=== PATIENT | male | born 1945 | race Caucasian/White ===

== ENCOUNTER → 2019-02-26 | Outpatient (CLI) | payer MEDICARE ==
--- NOTE | 2019-02-26 15:18 | PCVCIMAG ---
EXAM: BILATERAL LOWER EXTREMITY ARTERIAL DUPLEX INDICATION: Peripheral Arterial Disease. Leg pain. FINDINGS: Right Leg: Common femoral and profunda femoral arteries are patent. Increased systolic velocity mid [place] superficial femoral artery of 564 cm/s consistent with 95% stenosis. The popliteal artery is patent. Occlusion mid posterior tibial artery. The anterior tibial and peroneal arteries are patent. Left Leg: Common femoral profunda femoral arteries are patent. Increased systolic velocity [place] distal superficial femoral artery with 467 cm/s consistent with 90% stenosis. Popliteal artery is patent. Mid/distal posterior tibial artery is occluded. The anterior tibial and peroneal arteries are patent. IMPRESSION: 95% stenosis mid [place] right superficial femoral artery. 90% stenosis distal [place] left superficial femoral artery. LOC:[id number]
== END | disposition home or self-care (01) ==
LOC: PCVCIMAG 11:24
PROVIDERS: ATTEND Nuclear Medicine Nuclear Cardiology
DX: I70.203 Unspecified atherosclerosis of native arteries of extremities, bilateral legs (principal)
CPT/HCPCS: 93925

== ENCOUNTER → 2019-03-02 | Outpatient (CLI) | payer MEDICARE | END | disposition home or self-care (01) | LOC: PCVCCLINIC 13:34 | PROVIDERS: ATTEND Nuclear Medicine Nuclear Cardiology | DX: E11.51 Type 2 diabetes mellitus with diabetic peripheral angiopathy without gangrene (principal); I12.9 Hypertensive chronic kidney disease with stage 1 through stage 4 chronic kidney disease, or unspecified chronic kidney disease; E11.22 Type 2 diabetes mellitus with diabetic chronic kidney disease; N18.3 Chronic kidney disease, stage 3 (moderate); Z72.0 Tobacco use | CPT/HCPCS: G0463 ==

== ENCOUNTER → 2019-03-11 | Outpatient (CLI) | payer MEDICARE ==
--- NOTE | 2019-03-11 14:16 | PCVCIMAG ---
EXAM: BILATERAL CAROTID DUPLEX INDICATION: Carotid Occlusive Disease. FINDINGS: Doppler Measurements (centimeters per second): RIGHT: Peak CCA-94, Peak ECA-110, Diastolic ICA-31, Peak ICA-124, ICA/CCA Ratio-1.3. LEFT: Peak CCA-84, Peak ECA-128, Diastolic ICA-29, Peak ICA-117, ICA/CCA Ratio-1.4. RIGHT CAROTID: The carotid bulb has mild plaque. The proximal internal carotid artery shows <40% stenosis. The common carotid artery shows no significant stenosis. The external carotid artery shows no significant stenosis. LEFT CAROTID: The carotid bulb has moderate plaque. The proximal internal carotid artery shows <40% stenosis. The common carotid artery shows no significant stenosis. The external carotid artery shows no significant stenosis. Antegrade flow in both vertebral arteries. IMPRESSION: <40% stenosis of the right internal carotid artery with mild plaque. <40% stenosis of the left internal carotid artery with moderate plaque. LOC:[place] [id number]
== END | disposition home or self-care (01) ==
LOC: PCVCIMAG 13:30
PROVIDERS: ATTEND Nuclear Medicine Nuclear Cardiology
DX: I65.23 Occlusion and stenosis of bilateral carotid arteries (principal)
CPT/HCPCS: 93880

== ENCOUNTER → 2019-03-18 | Outpatient (CLI) | payer MEDICARE | END | disposition home or self-care (01) | LOC: PCVCCLINIC 12:52 | PROVIDERS: ATTEND Internal Medicine Cardiovascular Disease | DX: R93.1 Abnormal findings on diagnostic imaging of heart and coronary circulation (principal); R07.9 Chest pain, unspecified; R06.02 Shortness of breath; E78.5 Hyperlipidemia, unspecified; I10 Essential (primary) hypertension; I73.9 Peripheral vascular disease, unspecified; E11.9 Type 2 diabetes mellitus without complications; F17.210 Nicotine dependence, cigarettes, uncomplicated | CPT/HCPCS: 36415; 80061; 93005; G0463 ==

== ENCOUNTER → 2019-03-23 | Outpatient (CLI) | payer MEDICARE ==
--- NOTE | 2019-03-23 17:54 | PCVCIMAG ---
APPROVED REPORT Study performed: 03/23/2019 15:53:14 Exam: Stress Echocardiogram Indication: CAD , PAD Ht: 5 ft 10 in Medical History Medical History: PAD, Diabetes,TURNER Cardiac Risk Factors: DM, Hyperlipidemia,, Smoking Previous Cardiac Procedures: NONE Pretest Chest Pain Characteristics: No chest pain Exercise History: Sedentary Procedure The patient underwent an Exercise Stress Test using the Gerri Protocol. Blood pressure, heart rate, and EKG were monitored. An Echocardiogram was performed by nuclear test technician in four stages in quad fashion. At peak stress, four selected images were obtained and placed side by side with resting images for comparison. Stress Test Details Stress Test: Exercise stress testing was performed using a Gerri protocol. HR Resting HR: 79 bpmMax Heart Rate (APMHR): 148 bpm Max HR Achieved: 122 bpmTarget HR (85% APMHR): 125 bpm % of APMHR: 82 Recovery HR: 90 bpm HR response to stress: Normal HR response to stress BP Resting BP: 104/60 mmHg Max BP: 158/76 mmHg Recovery BP: 138/62 mmHg BP response to stress: Normal blood pressure response to stress. ECG Resting ECG: Sinus Rhythm Stress ECG: Sinus Rhythm ST Change: Non-ischemic Arrhythmia: Rare PAC,PVC Recovery ECG: Sinus Rhythm Recovery ST Change: Non-ischemic Recovery Arrhythmia: rare PVCs Clinical Reason for Termination: Maximal effort Stress Symptoms: fatigue Exercise duration: 7 min 33 sec Highest Stage Achieved: Stage 3: 3.4 mph at 14% grade. Exercise capacity: 10.1 METs Overall Exercise Capacity for Age: Good Scale: Sedentary Angina Score: None Stress ECG Conclusion The patient exercised according to the GERRI protocol for 7:33 mins; achieving a work level of 10.1 METS. The resting heart rate of 79 bpm poli to a maximum heart rate of 122 bpm. This value represents 82% of the maximal, age-predicted heart rate. The resting blood pressure of 104/60 mmHg, poli to a maximum blood pressure of 158/76mmHg. The exercise test was stopped due to fatigue . Pre-Stress Echo The resting Echocardiogram showed normal left ventricular contractility with an estimated Ejection Fraction of about 55-60%. Normal wall motion in all segments on baseline images. Post-Stress Echo The stress Echocardiogram showed normal left ventricular contractility with an estimated Ejection Fraction of about 65-70%. Normal augmentation of wall motion in all segments on post stress images. Clinical No clinical or ECG evidence for ischemia. Conclusion Clinical Response: Non-ischemic Exercise Capacity: Average Stress ECG Response: Non-ischemic Stress Echo Images: Non-ischemic Normal stress echocardiogram with maximal exercise stress. No clinical, EKG or echocardiographic evidence for ischemia. No echocardiographic evidence for exercise induced ischemia. Borderline moderate aortic stenosis is seen, A trileaflet valve with moderately reduced excursion and mild regurgitation The peak velocity is 2.74 m/sec, peak gradient is 33 mmHg , mean gradient is 19 mmHg. The Aortic valve area is 1.4 cm2 No prior study available for comparison. <Conclusion> Normal stress echocardiogram with maximal exercise stress. No clinical, EKG or echocardiographic evidence for ischemia. No echocardiographic evidence for exercise induced ischemia. Borderline moderate aortic stenosis is seen, A trileaflet valve with moderately reduced excursion and mild regurgitation The peak velocity is 2.74 m/sec, peak gradient is 33 mmHg , mean gradient is 19 mmHg. The Aortic valve area is 1.4 cm2
== END | disposition home or self-care (01) ==
LOC: PCVCIMAG 15:12
PROVIDERS: ATTEND Internal Medicine Cardiovascular Disease
DX: I34.0 Nonrheumatic mitral (valve) insufficiency (principal); I25.10 Atherosclerotic heart disease of native coronary artery without angina pectoris; I10 Essential (primary) hypertension; I73.9 Peripheral vascular disease, unspecified; E11.9 Type 2 diabetes mellitus without complications; F17.200 Nicotine dependence, unspecified, uncomplicated
CPT/HCPCS: 93325; 93351

== ENCOUNTER → 2019-06-24 | Outpatient (CLI) | payer MEDICARE ==
--- NOTE | 2019-06-24 11:59 | PCVCIMAG ---
EXAM: BILATERAL LOWER EXTREMITY ARTERIAL DUPLEX INDICATION: Peripheral Arterial Disease. Leg pain. FINDINGS: Right Leg: Common femoral and profunda femoral arteries are patent. Superficial femoral artery and popliteal artery are patent including previous stent distal superficial femoral artery. Unchanged occlusion posterior tibial artery. The anterior tibial and peroneal arteries are patent. Left Leg: Common femoral and profunda femoral arteries are patent. Superficial femoral artery and popliteal artery are patent including previous stent mid/distal superficial femoral artery. Unchanged occlusion proximal/mid posterior tibial artery. 60% stenosis mid anterior tibial artery. Peroneal artery is patent. IMPRESSION: Previous distal right superficial femoral artery stent maintaining good patency. Previous mid/distal left superficial femoral artery stent maintaining good patency. Unchanged occlusion of the right and left posterior tibial arteries. LOC:[id number]
== END | disposition home or self-care (01) ==
LOC: PCVCIMAG 10:23
PROVIDERS: ATTEND Nuclear Medicine Nuclear Cardiology
DX: I70.203 Unspecified atherosclerosis of native arteries of extremities, bilateral legs (principal); I65.29 Occlusion and stenosis of unspecified carotid artery; I10 Essential (primary) hypertension; E11.22 Type 2 diabetes mellitus with diabetic chronic kidney disease; N18.3 Chronic kidney disease, stage 3 (moderate); Z95.828 Presence of other vascular implants and grafts; Z72.0 Tobacco use; Z79.82 Long term (current) use of aspirin; Z79.899 Other long term (current) drug therapy
CPT/HCPCS: 93925; G0463